=== PATIENT | female | born 1945 | race Caucasian/White ===

== ENCOUNTER 2023-08-15 14:28 | Emergency (ER) | payer OTHER, MEDICAID ==
[~2023-08-15] VITALS: Ht 139.7 cm; Wt 40.0 kg
[2023-08-15 14:38] VITALS: O2SAT 99
[2023-08-15] MEDS: BACITRACIN ZINC OINT UDPKT TOP ONE (15:30)
[2023-08-15] MEDS: ACETAMINOPHEN 325MG TABLET PO ONE (15:30)
[2023-08-15] MEDS: LIDOCAINE HCL/PF 1% 10 MG/ML 5ML VIAL INFIL ONE (15:30)
[2023-08-15] MEDS: LIDOCAINE HCL/PF 1% 10 MG/ML 5ML VIAL INFIL NR (16:30)
[2023-08-15] MEDS: CEFTRIAXONE SODIUM 1G VIAL IM NR (16:30)
[2023-08-15] MEDS ORDERED: SULF1TAB48 MT (16:38)
[2023-08-15] MEDS ORDERED: ACET-2708 PO (16:38)
[2023-08-15] MEDS ORDERED: CEPH500T MT (16:38)
[2023-08-15 19:15] VITALS: BP 126/77; PULSE 66; RESP 18; TEMP 98.2
== END 2023-08-15 20:25 | disposition home or self-care (01) ==
LOC: ER 15:26
DX: L02.11 Cutaneous abscess of neck (principal); D64.9 Anemia, unspecified; I10 Essential (primary) hypertension
CPT/HCPCS: 99283; 96372; J0696; J3490